=== PATIENT | male | born 1995 | race Two or more races ===

== ENCOUNTER 2024-09-08 19:46 | Emergency (ER) | payer MEDICAID ==
[~2024-09-08] VITALS: Ht 177.8 cm; Wt 93.0 kg
[2024-09-08 20:36] LABS: COVID AG,FIA SOURCE NASAL SWAB
[2024-09-08 20:50] LABS: BASOPHILS % (AUTO) 0.9 % (0.0-2.0); EOSINOPHILS % (AUTO) 2.3 % (1.0-6.0); HEMATOCRIT 45.9 % (41-53); HEMOGLOBIN 15.8 g/dL (13.5-17.5); LYMPHOCYTES # (AUTO) 2.7 K/uL (1.0-4.8); LYMPHOCYTES % (AUTO) 35.6 % (22.0-44.0); MEAN CORPUSCULAR HEMOGLOBIN 32.1 pg (26.0-34.0); MEAN CORPUSCULAR HGB CONC 34.5 G/dL (31.0-37.0); MEAN CORPUSCULAR VOLUME 93 fL (80-100); MONOCYTES % (AUTO) 12.8 % (2.0-9.0); NEUTROPHILS # (AUTO) 3.7 K/uL (1.8-7.7); NEUTROPHILS % (AUTO) 48.4 % (40.0-70.0); PLATELET COUNT (AUTO) 221 K/uL (150-450); RED BLOOD CELL COUNT(AUTO) 4.93 MIL/uL (4.50-5.90); RED CELL DISTRIBUTION WIDTH 13.4 % (11.5-14.5); WHITE BLOOD COUNT (AUTO) 7.6 K/uL (4.5-11.0)
[2024-09-08 20:56] LABS: SARS-COV2 (COVID) ANTIGEN,FIA Negative (Negative)
[2024-09-08 20:57] LABS: INFLUENZA TYPE A NEGATIVE FOR TYPE A (NEGATIVE); INFLUENZA TYPE B NEGATIVE FOR TYPE B (NEGATIVE)
[2024-09-08 20:59] LABS: ANION GAP 9 mmol/L (8-16); CALCIUM, TOTAL 8.4 mg/dL (8.8-10.5); CARBON DIOXIDE 29 mmol/L (22-29); CHLORIDE 102 mmol/L (98-107); CREATININE 1.14 mg/dL (0.60-1.30); GLOMERULAR FILTR. RATE CALC > 60 mL/min (>60); GLUCOSE,RANDOM 90 mg/dL (70-110); POTASSIUM 3.6 mmol/L (3.5-5.1); SODIUM SERUM 140 mmol/L (136-145); UREA NITROGEN, BLOOD 13 mg/dL (7-18)
[2024-09-08 23:00] VITALS: BP 131/82; PULSE 89; RESP 20; TEMP 98.3; O2SAT 99
[2024-09-08] MEDS ORDERED: ACET-3385 PO (23:04)
[2024-09-08] MEDS ORDERED: PRED-554 PO (23:04)
[2024-09-08] MEDS ORDERED: IBUP-1492 PO (23:04)
[2024-09-08] MEDS: PredniSONE 20 MG TABLET PO ONE (23:24)
[2024-09-08] MEDS: ALBUTEROL SULFATE HFA 90 MCG/PUFF 8 GM INHALER IH ONE (23:25)
== END 2024-09-09 00:17 | disposition home or self-care (01) ==
LOC: EMS 19:46
DX: B34.9 Viral infection, unspecified (principal); J45.909 Unspecified asthma, uncomplicated; K21.9 Gastro-esophageal reflux disease without esophagitis; Z20.822 Contact with and (suspected) exposure to COVID-19
CPT/HCPCS: 99284; 71045; 87426; 80048; 85025; 87804; 36415; 94640; J7512; J3535

== ENCOUNTER 2024-12-27 00:54 | Emergency (ER) | payer MEDICAID ==
[~2024-12-27] VITALS: Ht 177.8 cm; Wt 88.6 kg
[~2024-12-27 00:54] MED LIST: ACET-3385 PO; IBUP-1492 PO; PRED-554 PO
[2024-12-27 01:09] VITALS: BP 120/57; PULSE 98; RESP 20; TEMP 98.1; O2SAT 96
[2024-12-27] MEDS: KETOROLAC TROMETHAMINE 30 MG/ML VIAL IM ONE (05:38)
[2024-12-27] MEDS: TraMADol HCL 50 MG TABLET PO ONE (05:39)
== END 2024-12-27 05:47 | disposition home or self-care (01) ==
LOC: EMS 00:54
DX: S93.401A Sprain of unspecified ligament of right ankle, initial encounter (principal); J45.909 Unspecified asthma, uncomplicated; Z79.52 Long term (current) use of systemic steroids; X50.1XXA Overexertion from prolonged static or awkward postures, initial encounter; Y93.89 Activity, other specified; Y92.89 Other specified places as the place of occurrence of the external cause; Y99.8 Other external cause status
CPT/HCPCS: 99284; 29515; 73562; 73610; 96372; J1885